=== PATIENT | female | born 1955 | race Caucasian/White ===

== ENCOUNTER 2019-07-11 12:50 | Inpatient (IN) ==
[2019-07-11 13:51] LABS: Bilirubin,Urine Negative (Negative); Blood,Urine Negative (Negative); Clarity,Urine Clear (Clear); Color,Urine Yellow (Yellow); Glucose,Urine (UA) Normal (Normal); Ketones,Urine Negative (Negative); Leukocyte Esterase,Urine Trace (Negative); Nitrite,Urine Negative (Negative); Protein,Urine Negative (Neg-Trace); Specific Gravity,Urine 1.011 (1.010-1.025); Urobilinogen,Urine Normal (Normal)
[2019-07-11 13:59] LABS: INR 1.1
[2019-07-11 14:01] LABS: Activated Partial Thrombo Time 30.5 Seconds (26.0-36.0)
[2019-07-11 14:03] LABS: Basophils % 0.2 %; Eosinophils % 0.1 %; Hematocrit 36.3 % (35.3-44.9); Hemoglobin 11.7 g/dL (11.5-15.4); Immature Granulocytes % 0.5 % (0-4); Lymphocytes # 1.1 K/mcL (0.6-4.6); Lymphocytes % 8.1 %; Mean Corpuscular HGB Conc 32.2 g/dL (31.6-35.5); Mean Corpuscular Hemoglobin 29.8 pg (28.0-33.3); Mean Corpuscular Volume 92.6 fL (83.0-100.0); Mean Platelet Volume 10.2 fL (9.4-12.4); Monocytes # 0.7 K/mcL (0.0-1.3); Neutrophils # 11.6 K/mcL (1.6-8.9); Platelet Count 282 K/mcL (140-400); Red Blood Count 3.92 M/mcL (3.82-4.97); Red Cell Distribution Width 14.5 % (11.5-14.5); Segmented Neutrophils % 86.1 %; White Blood Count 13.5 K/mcL (4.3-11.1)
[2019-07-11 14:15] LABS: Alanine Aminotransferase 20 Units/L (7-52); Albumin 4.1 g/dL (3.5-5.7); Albumin/Globulin Ratio 1.2 (1.1-2.2); Alkaline Phosphatase 95 Units/L (34-104); Aspartate Amino Transferase 33 Units/L (13-39); BUN/Creatinine Ratio 19 (6-26); Bilirubin,Direct 0.2 mg/dL (0.0-0.2); Bilirubin,Indirect 0.2 mg/dL (0.0-1.0); Bilirubin,Total 0.4 mg/dL (0.3-1.0); Blood Urea Nitrogen 17 mg/dL (8-23); Calcium 9.1 mg/dL (8.6-10.3); Carbon Dioxide 29 mEq/L (23-29); Chloride 101 mEq/L (98-107); Globulin 3.5 g/dL (2.4-3.5); Glucose 136 mg/dL (70-105); Magnesium 2.1 mg/dL (1.6-2.6); Osmolality,Calculated 292 (280-300); Phosphorous 2.9 mg/dL (2.7-4.5); Potassium 3.4 mEq/L (3.5-5.1); Sodium 139 mEq/L (136-145); Total Protein 7.6 g/dL (6.4-8.9); Troponin I < 0.03 ng/mL (< 0.04); eGFR For African Americans > 60 (> 60); eGFR For Non-African Americans > 60 (> 60)
[2019-07-11 16:00] LABS: ABG Base Excess 6 mEq/L (-2 to 3); ABG HCO3 31 mEq/L (21-27); ABG Oxygen Saturation 96 % (95-98); ABG PCO2 45 mmHg (35-45); ABG PH 7.44 pH Units (7.32-7.45); ABG PO2 77 mmHg (85-104); ABG TCO2 32 mEq/L (20-26)
[2019-07-11] MEDS ORDERED: levoFLOXacin 750 MG/150 ML 750 MG/150 ML BAG IVPB ONE (16:02)
[2019-07-11] MEDS ORDERED: Naloxone 0.4 MG/ML INJ IVP PRN (17:07)
[2019-07-11] MEDS ORDERED: Dextrose Gel 15 GM/37.5 ML TUBE PO PRN ×2 (17:48)
[2019-07-11] MEDS ORDERED: *HR* Dextrose 50 % in Water (Syg) 50 ML SYRINGE IVP PRN (17:48)
[2019-07-11] MEDS ORDERED: D5% in Water 1,000 ML IVC PRN (17:48)
[2019-07-11] MEDS ORDERED: lisinopriL 10 MG TABLET PO PRN (17:51)
[2019-07-11 18:37] LABS: Thyroid Stimulating Hormone 0.695 mcIU/mL (0.340-5.600)
[2019-07-11] MEDS: Furosemide 40 MG TABLET PO SCH (19:29)
[2019-07-11 19:37] LABS: Estimated Average Glucose 140 mg/dl
[2019-07-11] MEDS: Gabapentin 300 MG CAPSULE PO SCH (21:42)
[2019-07-11] MEDS: Insulin LISPRO 300 UNITS/3 ML VIAL SQ SCH (22:00)
[2019-07-12] MEDS ORDERED: hydrOXYzine pamoate 25 MG CAPSULE PO STA (02:02)
[2019-07-12] MEDS: Benzonatate 100 MG CAPSULE PO PRN ×2 (02:35→20:27)
[2019-07-12 05:20] LABS: Basophils % 0.3 %; Eosinophils % 0.3 %; Hematocrit 35.6 % (35.3-44.9); Hemoglobin 11.2 g/dL (11.5-15.4); Immature Granulocytes % 0.5 % (0-4); Lymphocytes # 2.8 K/mcL (0.6-4.6); Mean Corpuscular HGB Conc 31.5 g/dL (31.6-35.5); Mean Corpuscular Hemoglobin 29.1 pg (28.0-33.3); Mean Corpuscular Volume 92.5 fL (83.0-100.0); Mean Platelet Volume 9.9 fL (9.4-12.4); Monocytes # 1.4 K/mcL (0.0-1.3); Monocytes % 9.3 %; Neutrophils # 10.4 K/mcL (1.6-8.9); Platelet Count 305 K/mcL (140-400); Red Blood Count 3.85 M/mcL (3.82-4.97); Red Cell Distribution Width 14.5 % (11.5-14.5); Segmented Neutrophils % 70.6 %; White Blood Count 14.7 K/mcL (4.3-11.1)
[2019-07-12] MEDS: *HR* Enoxaparin 40 MG/0.4 ML SYRINGE SQ SCH (06:22)
[2019-07-12 06:54] LABS: BUN/Creatinine Ratio 20 (6-26); Blood Urea Nitrogen 17 mg/dL (8-23); Calcium 9.1 mg/dL (8.6-10.3); Carbon Dioxide 27 mEq/L (23-29); Chloride 102 mEq/L (98-107); Glucose 99 mg/dL (70-105); Osmolality,Calculated 288 (280-300); Potassium 3.9 mEq/L (3.5-5.1); Sodium 138 mEq/L (136-145); eGFR For African Americans > 60 (> 60); eGFR For Non-African Americans > 60 (> 60)
[2019-07-12] MEDS: Famotidine 20 MG TABLET PO SCH (07:56)
[2019-07-12] MEDS: Aspirin Enteric Coated 81 MG Tablet PO SCH (07:56)
[2019-07-12] MEDS: Furosemide 40 MG TABLET PO SCH ×2 (07:56→17:44)
[2019-07-12] MEDS: Gabapentin 300 MG CAPSULE PO SCH ×3 (07:56→19:55)
[2019-07-12] MEDS: Folic Acid 1 MG TABLET PO SCH (07:56)
[2019-07-12] MEDS: levoFLOXacin 750 MG/150 ML 750 MG/150 ML BAG IVPB SCH (07:56)
[2019-07-12] MEDS: Insulin LISPRO 300 UNITS/3 ML VIAL SQ SCH ×4 (08:14→20:35)
[2019-07-12] MEDS: Baclofen 10 MG TABLET PO PRN (09:40)
[2019-07-12] MEDS: clonazePAM 0.5 MG TABLET PO SCH ×2 (11:28→19:54)
[2019-07-12] MEDS ORDERED: hydrOXYzine pamoate 25 MG CAPSULE PO SCH (13:00)
[2019-07-12] MEDS: methylPREDNISolone 125 MG/2 ML VIAL IVP SCH (14:39)
[2019-07-12] MEDS: SUMAtriptan succinate 50 MG TABLET PO PRN (14:46)
[2019-07-12] MEDS: Tiotropium 18 MCG inhalation IH SCH (18:24)
[2019-07-13] MEDS: methylPREDNISolone 125 MG/2 ML VIAL IVP SCH ×4 (00:11→23:36)
[2019-07-13] MEDS ORDERED: Ipratropium 1 PUFF INHALER IH PRN (02:20)
[2019-07-13 02:36] LABS: ABG Base Excess 5 mEq/L (-2 to 3); ABG HCO3 30 mEq/L (21-27); ABG Oxygen Saturation 88 % (95-98); ABG PCO2 46 mmHg (35-45); ABG PH 7.43 pH Units (7.32-7.45); ABG PO2 54 mmHg (85-104); ABG TCO2 31 mEq/L (20-26)
[2019-07-13 06:00] LABS: Basophils % 0.2 %; Hematocrit 37.4 % (35.3-44.9); Hemoglobin 11.6 g/dL (11.5-15.4); Immature Granulocytes % 0.4 % (0-4); Lymphocytes # 1.2 K/mcL (0.6-4.6); Lymphocytes % 11.2 %; Mean Corpuscular Hemoglobin 28.6 pg (28.0-33.3); Mean Corpuscular Volume 92.3 fL (83.0-100.0); Mean Platelet Volume 9.6 fL (9.4-12.4); Monocytes # 0.4 K/mcL (0.0-1.3); Monocytes % 3.2 %; Neutrophils # 9.4 K/mcL (1.6-8.9); Platelet Count 315 K/mcL (140-400); Red Blood Count 4.05 M/mcL (3.82-4.97); Red Cell Distribution Width 14.1 % (11.5-14.5)
[2019-07-13] MEDS: *HR* Enoxaparin 40 MG/0.4 ML SYRINGE SQ SCH (06:18)
[2019-07-13 06:24] LABS: BUN/Creatinine Ratio 23 (6-26); Blood Urea Nitrogen 18 mg/dL (8-23); Calcium 9.2 mg/dL (8.6-10.3); Carbon Dioxide 29 mEq/L (23-29); Chloride 100 mEq/L (98-107); Glucose 148 mg/dL (70-105); Osmolality,Calculated 289 (280-300); Potassium 4.2 mEq/L (3.5-5.1); Sodium 137 mEq/L (136-145); eGFR For African Americans > 60 (> 60); eGFR For Non-African Americans > 60 (> 60)
[2019-07-13] MEDS: Insulin LISPRO 300 UNITS/3 ML VIAL SQ SCH ×4 (08:20→21:32)
[2019-07-13] MEDS: *HR* Promethazine 25 MG/ML VIAL IVP PRN (08:39)
[2019-07-13] MEDS: Aspirin Enteric Coated 81 MG Tablet PO SCH (08:40)
[2019-07-13] MEDS: Folic Acid 1 MG TABLET PO SCH (08:40)
[2019-07-13] MEDS: Gabapentin 300 MG CAPSULE PO SCH ×3 (08:40→20:00)
[2019-07-13] MEDS: clonazePAM 0.5 MG TABLET PO PRN ×2 (08:40→14:14)
[2019-07-13] MEDS: Famotidine 20 MG TABLET PO SCH (08:40)
[2019-07-13] MEDS: Furosemide 40 MG TABLET PO SCH (08:40)
[2019-07-13] MEDS: hydrOXYzine pamoate 25 MG CAPSULE PO SCH ×3 (08:40→23:38)
[2019-07-13] MEDS: levoFLOXacin 750 MG/150 ML 750 MG/150 ML BAG IVPB SCH (08:41)
[2019-07-13] MEDS: Tiotropium 18 MCG inhalation IH SCH (10:58)
[2019-07-13] MEDS: Furosemide 40 MG/4 ML VIAL IVP SCH (17:01)
[2019-07-13] MEDS: Ipratropium/Albuterol Neb 3 ML IH SCH (21:25)
[2019-07-14] MEDS: Ipratropium/Albuterol Neb 3 ML IH SCH ×7 (00:45→23:13)
[2019-07-14] MEDS: SUMAtriptan succinate 50 MG TABLET PO PRN ×2 (05:13→19:51)
[2019-07-14] MEDS: *HR* Promethazine 25 MG/ML VIAL IVP PRN (05:13)
[2019-07-14] MEDS: Baclofen 10 MG TABLET PO PRN ×2 (05:13→15:17)
[2019-07-14] MEDS: *HR* Enoxaparin 40 MG/0.4 ML SYRINGE SQ SCH (05:14)
[2019-07-14 05:41] LABS: Basophils % 0.1 %; Hematocrit 36.2 % (35.3-44.9); Hemoglobin 11.6 g/dL (11.5-15.4); Immature Granulocytes % 0.3 % (0-4); Lymphocytes # 1.2 K/mcL (0.6-4.6); Lymphocytes % 8.2 %; Mean Corpuscular Hemoglobin 29.6 pg (28.0-33.3); Mean Corpuscular Volume 92.3 fL (83.0-100.0); Mean Platelet Volume 9.6 fL (9.4-12.4); Monocytes # 0.7 K/mcL (0.0-1.3); Monocytes % 4.6 %; Neutrophils # 12.5 K/mcL (1.6-8.9); Platelet Count 320 K/mcL (140-400); Red Blood Count 3.92 M/mcL (3.82-4.97); Red Cell Distribution Width 14.2 % (11.5-14.5); Segmented Neutrophils % 86.8 %; White Blood Count 14.4 K/mcL (4.3-11.1)
[2019-07-14 06:07] LABS: BUN/Creatinine Ratio 30 (6-26); Blood Urea Nitrogen 26 mg/dL (8-23); Calcium 9.3 mg/dL (8.6-10.3); Carbon Dioxide 29 mEq/L (23-29); Chloride 100 mEq/L (98-107); Glucose 200 mg/dL (70-105); Lactate Dehydrogenase 378 Units/L (140-271); Osmolality,Calculated 296 (280-300); Potassium 3.8 mEq/L (3.5-5.1); Sodium 138 mEq/L (136-145); eGFR For African Americans > 60 (> 60); eGFR For Non-African Americans > 60 (> 60)
[2019-07-14 07:59] LABS: C-Reactive Protein 165 mg/L (Less than 10)
[2019-07-14] MEDS ORDERED: Isovue-370 500 ML BOTTLE IVP ONE (08:36)
[2019-07-14] MEDS: hydrOXYzine pamoate 25 MG CAPSULE PO SCH ×3 (10:02→23:32)
[2019-07-14] MEDS: Famotidine 20 MG TABLET PO SCH (10:02)
[2019-07-14] MEDS: Aspirin Enteric Coated 81 MG Tablet PO SCH (10:02)
[2019-07-14] MEDS: Gabapentin 300 MG CAPSULE PO SCH ×3 (10:02→19:49)
[2019-07-14] MEDS: Folic Acid 1 MG TABLET PO SCH (10:02)
[2019-07-14] MEDS: Furosemide 40 MG/4 ML VIAL IVP SCH ×2 (10:14→17:17)
[2019-07-14] MEDS: levoFLOXacin 750 MG/150 ML 750 MG/150 ML BAG IVPB SCH (10:15)
[2019-07-14] MEDS: Insulin LISPRO 300 UNITS/3 ML VIAL SQ SCH ×4 (10:16→21:52)
[2019-07-14] MEDS: clonazePAM 0.5 MG TABLET PO PRN (10:17)
[2019-07-14] MEDS: methylPREDNISolone 125 MG/2 ML VIAL IVP SCH ×4 (10:25→23:32)
[2019-07-14 10:44] LABS: Complement C3 172 mg/dL (87-200)
[2019-07-14] MEDS: Budesonide/Formoterol 160/4.5 1 PUFF INH IH SCH ×2 (11:09→20:14)
[2019-07-14] MEDS: Benzonatate 100 MG CAPSULE PO PRN (15:17)
[2019-07-14 23:08] LABS: ABG Base Excess 6 mEq/L (-2 to 3); ABG HCO3 31 mEq/L (21-27); ABG Oxygen Saturation 97 % (95-98); ABG PCO2 48 mmHg (35-45); ABG PH 7.42 pH Units (7.32-7.45); ABG PO2 86 mmHg (85-104); ABG TCO2 33 mEq/L (20-26)
[2019-07-15] MEDS: Ipratropium/Albuterol Neb 3 ML IH SCH ×6 (04:11→23:34)
[2019-07-15] MEDS: *HR* Enoxaparin 40 MG/0.4 ML SYRINGE SQ SCH (04:58)
[2019-07-15 05:58] LABS: Basophils % 0.1 %; Hematocrit 36.8 % (35.3-44.9); Hemoglobin 11.5 g/dL (11.5-15.4); Immature Granulocytes % 0.8 % (0-4); Lymphocytes % 7.7 %; Mean Corpuscular HGB Conc 31.3 g/dL (31.6-35.5); Mean Corpuscular Hemoglobin 28.8 pg (28.0-33.3); Mean Corpuscular Volume 92.2 fL (83.0-100.0); Mean Platelet Volume 9.8 fL (9.4-12.4); Monocytes # 0.7 K/mcL (0.0-1.3); Monocytes % 5.3 %; Neutrophils # 11.5 K/mcL (1.6-8.9); Platelet Count 380 K/mcL (140-400); Red Blood Count 3.99 M/mcL (3.82-4.97); Red Cell Distribution Width 14.2 % (11.5-14.5); Segmented Neutrophils % 86.1 %; White Blood Count 13.3 K/mcL (4.3-11.1)
[2019-07-15 06:17] LABS: BUN/Creatinine Ratio 32 (6-26); Blood Urea Nitrogen 29 mg/dL (8-23); Calcium 9.3 mg/dL (8.6-10.3); Carbon Dioxide 30 mEq/L (23-29); Chloride 100 mEq/L (98-107); Glucose 182 mg/dL (70-105); Osmolality,Calculated 304 (280-300); Potassium 3.5 mEq/L (3.5-5.1); Sodium 142 mEq/L (136-145); eGFR For African Americans > 60 (> 60); eGFR For Non-African Americans > 60 (> 60)
[2019-07-15] MEDS ORDERED: *HR* Propofol 200 MG/20 ML VIAL IVP ONE (06:30)
[2019-07-15] MEDS ORDERED: *HR* FentaNYL (PF) 100 MCG/2 ML VIAL ONE (06:30)
[2019-07-15] MEDS ORDERED: *HR* Midazolam HCl 2 MG/2 ML VIAL ONE (06:30)
[2019-07-15] MEDS ORDERED: Ondansetron 4 MG/2 ML VIAL ONE (06:41)
[2019-07-15] MEDS ORDERED: Lidocaine -MPF 4% 5 ML AMPUL ONE (06:41)
[2019-07-15] MEDS ORDERED: *HR* Succinylcholine 200 MG/10 ML VIAL IVP ONE (06:41)
[2019-07-15] MEDS ORDERED: Lidocaine -MPF 2% 2 ML VIAL ONE (06:41)
[2019-07-15] MEDS: Budesonide/Formoterol 160/4.5 1 PUFF INH IH SCH ×2 (07:14→19:59)
[2019-07-15] MEDS: Ringers Solution, Lactated 1,000 ML IVC SCH (08:28)
[2019-07-15] MEDS ORDERED: *HR* EPINEPHrine 1 MG/10 ML SYRINGE INTRATRACH PRN (08:42)
[2019-07-15] MEDS ORDERED: Albuterol 2.5 MG/3 ML NEBULIZER ONE (08:48)
[2019-07-15] MEDS ORDERED: Albuterol 2.5 MG/3 ML NEBULIZER IH ONE (08:50)
[2019-07-15 10:17] LABS: Source of Body Fluid RUL BAL
[2019-07-15] MEDS: Insulin LISPRO 300 UNITS/3 ML VIAL SQ SCH ×4 (10:38→20:17)
[2019-07-15 10:43] LABS: Appearance of Body Fluid Cloudy (Clear); Volume of Body Fluid 25 mL
[2019-07-15] MEDS: Famotidine 20 MG TABLET PO SCH (10:50)
[2019-07-15] MEDS: Aspirin Enteric Coated 81 MG Tablet PO SCH (10:50)
[2019-07-15] MEDS: Furosemide 40 MG/4 ML VIAL IVP SCH (10:50)
[2019-07-15] MEDS: Folic Acid 1 MG TABLET PO SCH (10:50)
[2019-07-15] MEDS: hydrOXYzine pamoate 25 MG CAPSULE PO SCH ×3 (10:51→23:31)
[2019-07-15] MEDS: methylPREDNISolone 125 MG/2 ML VIAL IVP SCH ×3 (10:51→23:31)
[2019-07-15] MEDS: Gabapentin 300 MG CAPSULE PO SCH ×3 (10:51→19:45)
[2019-07-15] MEDS: levoFLOXacin 750 MG/150 ML 750 MG/150 ML BAG IVPB SCH (10:52)
[2019-07-15] MEDS: Furosemide 40 MG TABLET PO SCH (17:43)
[2019-07-15] MEDS: Benzonatate 100 MG CAPSULE PO PRN (19:47)
[2019-07-15] MEDS: Baclofen 10 MG TABLET PO PRN (19:49)
[2019-07-16 02:22] LABS: Basophils % 0.2 %; Hematocrit 35.9 % (35.3-44.9); Immature Granulocytes % 0.7 % (0-4); Lymphocytes % 7.6 %; Mean Corpuscular HGB Conc 30.6 g/dL (31.6-35.5); Mean Corpuscular Hemoglobin 28.6 pg (28.0-33.3); Mean Corpuscular Volume 93.2 fL (83.0-100.0); Mean Platelet Volume 9.4 fL (9.4-12.4); Monocytes # 0.8 K/mcL (0.0-1.3); Monocytes % 6.2 %; Neutrophils # 11.3 K/mcL (1.6-8.9); Platelet Count 365 K/mcL (140-400); Red Blood Count 3.85 M/mcL (3.82-4.97); Red Cell Distribution Width 14.4 % (11.5-14.5); Segmented Neutrophils % 85.3 %; White Blood Count 13.2 K/mcL (4.3-11.1)
[2019-07-16 02:41] LABS: BUN/Creatinine Ratio 32 (6-26); Blood Urea Nitrogen 30 mg/dL (8-23); Calcium 8.8 mg/dL (8.6-10.3); Carbon Dioxide 31 mEq/L (23-29); Chloride 99 mEq/L (98-107); Glucose 216 mg/dL (70-105); Osmolality,Calculated 299 (280-300); Potassium 4.1 mEq/L (3.5-5.1); Sodium 138 mEq/L (136-145); eGFR For African Americans > 60 (> 60); eGFR For Non-African Americans > 60 (> 60)
[2019-07-16] MEDS: Ipratropium/Albuterol Neb 3 ML IH SCH ×5 (04:10→20:28)
[2019-07-16] MEDS: *HR* Enoxaparin 40 MG/0.4 ML SYRINGE SQ SCH (05:45)
[2019-07-16] MEDS: Budesonide/Formoterol 160/4.5 1 PUFF INH IH SCH ×2 (07:48→20:34)
[2019-07-16] MEDS: Insulin LISPRO 300 UNITS/3 ML VIAL SQ SCH ×3 (07:49→17:03)
[2019-07-16] MEDS: Acetylcysteine 10% 2 ML INHSOL IH SCH ×4 (07:49→20:28)
[2019-07-16] MEDS: Aspirin Enteric Coated 81 MG Tablet PO SCH (07:50)
[2019-07-16] MEDS: Gabapentin 300 MG CAPSULE PO SCH ×3 (07:50→20:19)
[2019-07-16] MEDS: hydrOXYzine pamoate 25 MG CAPSULE PO SCH ×2 (07:51→15:42)
[2019-07-16] MEDS: Folic Acid 1 MG TABLET PO SCH (07:51)
[2019-07-16] MEDS: Furosemide 40 MG TABLET PO SCH ×2 (07:51→17:46)
[2019-07-16] MEDS: Famotidine 20 MG TABLET PO SCH (07:51)
[2019-07-16] MEDS: methylPREDNISolone 125 MG/2 ML VIAL IVP SCH (07:51)
[2019-07-16] MEDS: levoFLOXacin 750 MG TABLET PO SCH (07:51)
[2019-07-16] MEDS: Ringers Solution, Lactated 1,000 ML IVC SCH (07:52)
[2019-07-16] MEDS: *HR* Promethazine 25 MG/ML VIAL IVP PRN (15:46)
[2019-07-16] MEDS: Baclofen 10 MG TABLET PO PRN (15:46)
[2019-07-16] MEDS: MethylPREDNISolone 40 MG/ML VIAL IVP SCH (17:46)
[2019-07-16] MEDS: Benzonatate 100 MG CAPSULE PO PRN (20:23)
[2019-07-17] MEDS: Acetylcysteine 10% 2 ML INHSOL IH SCH ×4 (00:13→11:48)
[2019-07-17] MEDS: Ipratropium/Albuterol Neb 3 ML IH SCH ×7 (00:14→23:30)
[2019-07-17] MEDS: Insulin LISPRO 300 UNITS/3 ML VIAL SQ SCH ×4 (00:15→17:27)
[2019-07-17] MEDS: hydrOXYzine pamoate 25 MG CAPSULE PO SCH ×2 (00:23→08:50)
[2019-07-17] MEDS: Ringers Solution, Lactated 1,000 ML IVC SCH (00:30)
[2019-07-17 02:15] LABS: Basophils % 0.2 %; Hemoglobin 11.1 g/dL (11.5-15.4); Immature Granulocytes % 1.5 % (0-4); Lymphocytes % 13.9 %; Mean Corpuscular HGB Conc 31.7 g/dL (31.6-35.5); Mean Corpuscular Hemoglobin 29.1 pg (28.0-33.3); Mean Corpuscular Volume 91.9 fL (83.0-100.0); Mean Platelet Volume 9.4 fL (9.4-12.4); Monocytes # 1.1 K/mcL (0.0-1.3); Monocytes % 7.4 %; Platelet Count 349 K/mcL (140-400); Red Blood Count 3.81 M/mcL (3.82-4.97); Red Cell Distribution Width 14.3 % (11.5-14.5); White Blood Count 14.3 K/mcL (4.3-11.1)
[2019-07-17 02:26] LABS: BUN/Creatinine Ratio 37 (6-26); Blood Urea Nitrogen 34 mg/dL (8-23); Calcium 8.6 mg/dL (8.6-10.3); Carbon Dioxide 30 mEq/L (23-29); Chloride 99 mEq/L (98-107); Glucose 190 mg/dL (70-105); Osmolality,Calculated 299 (280-300); Sodium 138 mEq/L (136-145); eGFR For African Americans > 60 (> 60); eGFR For Non-African Americans > 60 (> 60)
[2019-07-17] MEDS: MethylPREDNISolone 40 MG/ML VIAL IVP SCH (06:16)
[2019-07-17] MEDS: *HR* Enoxaparin 40 MG/0.4 ML SYRINGE SQ SCH (06:16)
[2019-07-17 07:03] LABS: ANA IgG by ELISA NONE DETECTED (None Detected)
[2019-07-17] MEDS: Aspirin Enteric Coated 81 MG Tablet PO SCH (08:50)
[2019-07-17] MEDS: levoFLOXacin 750 MG TABLET PO SCH (08:50)
[2019-07-17] MEDS: Gabapentin 300 MG CAPSULE PO SCH ×3 (08:50→20:27)
[2019-07-17] MEDS: Famotidine 20 MG TABLET PO SCH (08:50)
[2019-07-17] MEDS: Furosemide 40 MG TABLET PO SCH ×2 (08:50→17:27)
[2019-07-17] MEDS: Folic Acid 1 MG TABLET PO SCH (08:50)
[2019-07-17 11:39] LABS: Serine Protease-3 Antibody 3 AU/mL (0-19)
[2019-07-17] MEDS: Budesonide/Formoterol 160/4.5 1 PUFF INH IH SCH ×2 (11:45→20:48)
[2019-07-17] MEDS ORDERED: Budesonide/Formoterol 80/4.5 1 PUFF INH IH SCH (13:01)
[2019-07-17] MEDS: predniSONE 20 MG TABLET PO SCH (15:04)
[2019-07-18] MEDS: Insulin LISPRO 300 UNITS/3 ML VIAL SQ SCH ×3 (02:24→11:47)
[2019-07-18] MEDS: Ipratropium/Albuterol Neb 3 ML IH SCH ×3 (03:51→11:41)
[2019-07-18] MEDS: *HR* Enoxaparin 40 MG/0.4 ML SYRINGE SQ SCH (06:01)
[2019-07-18] MEDS: Budesonide/Formoterol 160/4.5 1 PUFF INH IH SCH (07:47)
[2019-07-18] MEDS: levoFLOXacin 750 MG TABLET PO SCH (07:49)
[2019-07-18] MEDS: Gabapentin 300 MG CAPSULE PO SCH (07:49)
[2019-07-18] MEDS: Aspirin Enteric Coated 81 MG Tablet PO SCH (07:49)
[2019-07-18] MEDS: Famotidine 20 MG TABLET PO SCH (07:50)
[2019-07-18] MEDS: Furosemide 40 MG TABLET PO SCH (07:50)
[2019-07-18] MEDS: Folic Acid 1 MG TABLET PO SCH (07:50)
[2019-07-18] MEDS: predniSONE 20 MG TABLET PO SCH (07:50)
[2019-07-18] MEDS ORDERED: hydrOXYzine pamoate 25 MG CAPSULE PO SCH (09:00)
[2019-07-18] MEDS ORDERED: predniSONE 20 MG TABLET PO SCH (09:00)
[2019-07-18 11:37] VITALS: BP 128/82
== END 2019-07-18 13:05 | disposition home or self-care (01) | DRG 193 ==
LOC: 2NENU 12:50 → EMEROOARM 12:50 → 2NENU 18:08 → SUATTDRO 07-12 15:19 → 3NENU 07-13 22:58
PROVIDERS: ADMIT Internal Medicine; ATTEND Student in an Organized Health Care Education/Training Program

== ENCOUNTER 2020-10-13 09:54 | Observation (INO) ==
[2020-10-13 10:43] LABS: Basophils # 0.1 K/mcL (0.0-0.2); Basophils % 1.4 %; Eosinophils # 0.3 K/mcL (0.0-0.6); Hematocrit 41.2 % (35.3-44.9); Hemoglobin 12.7 g/dL (11.5-15.4); Immature Granulocytes % 0.2 % (0-4); Lymphocytes # 3.5 K/mcL (0.6-4.6); Lymphocytes % 41.6 %; Mean Corpuscular HGB Conc 30.8 g/dL (31.6-35.5); Mean Corpuscular Hemoglobin 26.5 pg (28.0-33.3); Mean Platelet Volume 9.3 fL (9.4-12.4); Monocytes # 0.8 K/mcL (0.0-1.3); Monocytes % 8.9 %; Neutrophils # 3.8 K/mcL (1.6-8.9); Platelet Count 361 K/mcL (140-400); Red Blood Count 4.79 M/mcL (3.82-4.97); Red Cell Distribution Width 14.6 % (11.5-14.5); Segmented Neutrophils % 44.9 %; White Blood Count 8.4 K/mcL (4.3-11.1)
[2020-10-13 10:51] LABS: INR 1.1; Prothrombin Time 12.7 Seconds (9.4-12.1)
[2020-10-13 10:53] LABS: Activated Partial Thrombo Time 31.6 Seconds (26.0-36.0)
[2020-10-13 11:06] LABS: Alanine Aminotransferase 22 Units/L (7-52); Albumin 4.3 g/dL (3.5-5.7); Albumin/Globulin Ratio 1.2 (1.1-2.2); Alkaline Phosphatase 124 Units/L (34-104); Aspartate Amino Transferase 34 Units/L (13-39); BUN/Creatinine Ratio 20 (6-26); Bilirubin,Indirect 0.5 mg/dL (0.0-1.0); Bilirubin,Total 0.5 mg/dL (0.3-1.0); Blood Urea Nitrogen 18 mg/dL (8-23); Calcium 9.2 mg/dL (8.6-10.3); Carbon Dioxide 30 mEq/L (23-29); Chloride 102 mEq/L (98-107); Ethanol < 10 mg/dL (Less than 10); Globulin 3.5 g/dL (2.4-3.5); Glucose 121 mg/dL (70-105); Osmolality,Calculated 293 (280-300); Potassium 3.8 mEq/L (3.5-5.1); Sodium 140 mEq/L (136-145); Total Protein 7.8 g/dL (6.4-8.9); Troponin I < 0.03 ng/mL (< 0.04); eGFR For African Americans > 60 (> 60); eGFR For Non-African Americans > 60 (> 60)
[2020-10-13 11:19] LABS: Thyroid Stimulating Hormone 1.994 mcIU/mL (0.340-5.600)
[2020-10-13 12:07] LABS: Bilirubin,Urine Negative (Negative); Blood,Urine Negative (Negative); Clarity,Urine Clear (Clear); Color,Urine Yellow (Yellow); Glucose,Urine (UA) Normal (Normal); Ketones,Urine Negative (Negative); Leukocyte Esterase,Urine Negative (Negative); Nitrite,Urine Negative (Negative); Protein,Urine Trace mg/dL (Neg-Trace); Specific Gravity,Urine 1.026 (1.010-1.025)
[2020-10-13 12:51] LABS: Adenovirus Not Detected (Not Detect); Coronavirus 229E Not Detected (Not Detect); Coronavirus HKU1 Not Detected (Not Detect); Coronavirus NL63 Not Detected (Not Detect); Coronavirus OC43 Not Detected (Not Detect); Human Metapneumovirus Not Detected (Not Detect); Human Rhinovirus/Enterovirus Not Detected (Not Detect); Influenza A Subtype 2009 H1 Not Detected (Not Detect); SARS-CoV-2 Not Detected (Not Detect)
[2020-10-13 12:52] LABS: Bordetella Pertussis Not Detected (Not Detect); Chlamydophila pneumoniae Not Detected (Not Detect); Influenza B Not Detected (Not Detect); Mycoplasma pneumoniae Not Detected (Not Detect); Parainfluenza Virus 1 Not Detected (Not Detect); Parainfluenza Virus 2 Not Detected (Not Detect); Parainfluenza Virus 3 Not Detected (Not Detect); Parainfluenza Virus 4 Not Detected (Not Detect); Respiratory Syncytial Virus Not Detected (Not Detect)
[2020-10-13 13:11] LABS: Amphetamine Screen,Urine Negative ng/mL (Cutoff=1000); Barbiturate Screen,Urine Negative ng/mL (Cutoff=200); Benzodiazepines Screen,Urine Negative ng/mL (Cutoff=200); Cannabinoid Screen,Urine Negative ng/mL (Cutoff = 50); Cocaine Screen,Urine Negative ng/mL (Cutoff= 300); Opiate Screen,Urine Negative ng/mL (Cutoff=300); Phencyclidine Screen,Urine Negative ng/mL (Cutoff=25)
[2020-10-13] MEDS ORDERED: Ondansetron 4 MG/2 ML VIAL IVP PRN (14:12)
[2020-10-13] MEDS ORDERED: Naloxone 0.4 MG/ML INJ IVP PRN (14:12)
[2020-10-13] MEDS ORDERED: Perflutren Lipid Microsphere 1.3 ML in 0.9 % Sodium Chloride 8.7 ML IVP PRN (14:19)
[2020-10-13] MEDS ORDERED: D5% in Water 1,000 ML IVC PRN ×2 (15:01→18:55)
[2020-10-13] MEDS ORDERED: Dextrose Gel 15 GM/37.5 ML TUBE PO PRN ×4 (15:01→18:55)
[2020-10-13] MEDS ORDERED: *HR* Dextrose 50 % in Water (Vial) 50 ML VIAL IVP PRN ×2 (15:01→18:55)
[2020-10-13] MEDS ORDERED: Fluticasone Propionate Nasal 50 MCG/SPRAY BOTTLE NS PRN (15:02)
[2020-10-13] MEDS: Ipratropium/Albuterol Neb 3 ML IH SCH ×2 (15:32→23:14)
[2020-10-13] MEDS ORDERED: Isovue-370 500 ML BOTTLE IVP ONE (17:01)
[2020-10-13 17:32] LABS: Magnesium 2.2 mg/dL (1.6-2.6); Troponin I < 0.03 ng/mL (< 0.04)
[2020-10-13 17:45] LABS: Estimated Average Glucose 140 mg/dl; Hemoglobin A1C 6.5 %
[2020-10-13 17:47] LABS: Folate > 22.3 ng/mL (3.0-16.0); Vitamin B12 480 pg/mL (250-1100)
[2020-10-13] MEDS ORDERED: Insulin LISPRO 300 UNITS/3 ML VIAL SUBQ SCH (18:00)
[2020-10-13] MEDS: *HR* Heparin 5,000 UNIT/ML VIAL SQ SCH (18:02)
[2020-10-13] MEDS: Thiamine (B-1) 100 MG in 0.9 % Sodium Chloride 50 ML IVPB SCH (18:03)
[2020-10-13 18:18] LABS: ABG Base Excess 2 mEq/L (-2 to 3); ABG HCO3 27 mEq/L (21-27); ABG Oxygen Saturation 91 % (95-98); ABG PCO2 42 mmHg (35-45); ABG PH 7.41 pH Units (7.32-7.45); ABG PO2 62 mmHg (85-104); ABG TCO2 28 mEq/L (20-26)
[2020-10-13 19:15] LABS: Procalcitonin 0.05 ng/mL (0.00-0.15)
[2020-10-13] MEDS: Insulin LISPRO 300 UNITS/3 ML VIAL SUBQ SCH (21:02)
[2020-10-14 02:34] LABS: Eosinophils % 1.7 %; Immature Granulocytes % 0.2 % (0-4); Mean Platelet Volume 10.9 fL (9.4-12.4); Red Cell Distribution Width 14.6 % (11.5-14.5)
[2020-10-14 02:36] LABS: Basophils # 0.1 K/mcL (0.0-0.2); Basophils % 1.5 %; Eosinophils # 0.1 K/mcL (0.0-0.6); Hematocrit 40.8 % (35.3-44.9); Hemoglobin 12.4 g/dL (11.5-15.4); Immature Platelets 9.3 % (1.1-6.1); Lymphocytes # 3.6 K/mcL (0.6-4.6); Lymphocytes % 43.4 %; Mean Corpuscular HGB Conc 30.4 g/dL (31.6-35.5); Mean Corpuscular Hemoglobin 26.2 pg (28.0-33.3); Mean Corpuscular Volume 86.3 fL (83.0-100.0); Monocytes # 0.6 K/mcL (0.0-1.3); Monocytes % 7.5 %; Neutrophils # 3.8 K/mcL (1.6-8.9); Platelet Count 213 K/mcL (140-400); Red Blood Count 4.73 M/mcL (3.82-4.97); Segmented Neutrophils % 45.7 %; White Blood Count 8.3 K/mcL (4.3-11.1)
[2020-10-14 02:54] LABS: Chol/HDL Ratio 3.7 (0-4.9)
[2020-10-14] MEDS: Ipratropium/Albuterol Neb 3 ML IH SCH ×4 (04:05→22:54)
[2020-10-14] MEDS: *HR* Heparin 5,000 UNIT/ML VIAL SQ SCH ×2 (05:31→15:45)
[2020-10-14] MEDS ORDERED: Acetaminophen 325 MG TABLET PO PRN (06:00)
[2020-10-14] MEDS: Insulin LISPRO 300 UNITS/3 ML VIAL SUBQ SCH ×4 (07:42→20:17)
[2020-10-14] MEDS: Thiamine (B-1) 100 MG in 0.9 % Sodium Chloride 50 ML IVPB SCH (08:36)
[2020-10-14] MEDS: levETIRAcetam 250 MG TABLET PO SCH (16:56)
[2020-10-14 23:19] VITALS: PULSE 83
[2020-10-15 04:07] VITALS: BP 114/74; TEMP 98; O2SAT 98
[2020-10-15] MEDS: Ipratropium/Albuterol Neb 3 ML IH SCH (04:33)
[2020-10-15 05:33] LABS: Hematocrit 41.1 % (35.3-44.9); Hemoglobin 12.3 g/dL (11.5-15.4); Mean Corpuscular HGB Conc 29.9 g/dL (31.6-35.5); Mean Corpuscular Hemoglobin 26.3 pg (28.0-33.3); Mean Corpuscular Volume 87.8 fL (83.0-100.0); Mean Platelet Volume 11.1 fL (9.4-12.4); Platelet Count 164 K/mcL (140-400); Red Blood Count 4.68 M/mcL (3.82-4.97); Red Cell Distribution Width 14.8 % (11.5-14.5); White Blood Count 8.8 K/mcL (4.3-11.1)
[2020-10-15] MEDS: levETIRAcetam 250 MG TABLET PO SCH (05:38)
[2020-10-15] MEDS: *HR* Heparin 5,000 UNIT/ML VIAL SQ SCH (05:39)
[2020-10-15 05:51] LABS: Alanine Aminotransferase 26 Units/L (7-52); Albumin 4.3 g/dL (3.5-5.7); Albumin/Globulin Ratio 1.3 (1.1-2.2); Alkaline Phosphatase 104 Units/L (34-104); Aspartate Amino Transferase 52 Units/L (13-39); BUN/Creatinine Ratio 17 (6-26); Bilirubin,Total 0.9 mg/dL (0.3-1.0); Blood Urea Nitrogen 12 mg/dL (8-23); Calcium 9.5 mg/dL (8.6-10.3); Carbon Dioxide 23 mEq/L (23-29); Chloride 103 mEq/L (98-107); Globulin 3.4 g/dL (2.4-3.5); Glucose 100 mg/dL (70-105); Osmolality,Calculated 284 (280-300); Potassium 3.5 mEq/L (3.5-5.1); Sodium 137 mEq/L (136-145); Total Protein 7.7 g/dL (6.4-8.9); eGFR For African Americans > 60 (> 60); eGFR For Non-African Americans > 60 (> 60)
[2020-10-15] MEDS: Thiamine (B-1) 100 MG in 0.9 % Sodium Chloride 50 ML IVPB SCH (08:12)
[2020-10-15] MEDS: Insulin LISPRO 300 UNITS/3 ML VIAL SUBQ SCH ×2 (08:39→09:07)
[2020-10-16 18:26] LABS: APTT (LE Anticoag) 37 sec (32-48); Diluted Russell Viper Venom 29 sec (33-44); PT (LE-Anticoag) 12.9 sec (12.0-15.5)
== END 2020-10-15 10:43 | disposition home or self-care (01) ==
LOC: 3BNU 09:54 → EMEROOARM 09:54 → SUATTDRO 13:27 → 3BNU 14:16
PROVIDERS: ADMIT Pharmacist; ATTEND Registered Nurse

== ENCOUNTER 2020-11-29 21:06 | Inpatient (IN) ==
[2020-11-29] MEDS ORDERED: Haloperidol Lactate 5 MG/ML VIAL IM ONE (21:52)
[2020-11-29 22:04] LABS: Basophils # 0.1 K/mcL (0.0-0.2); Basophils % 0.8 %; Eosinophils # 0.3 K/mcL (0.0-0.6); Eosinophils % 4.4 %; Hematocrit 29.6 % (35.3-44.9); Hemoglobin 9.4 g/dL (11.5-15.4); Immature Granulocytes % 0.7 % (0-4); Lymphocytes # 3.3 K/mcL (0.6-4.6); Lymphocytes % 44.1 %; Mean Corpuscular HGB Conc 31.8 g/dL (31.6-35.5); Mean Corpuscular Hemoglobin 26.9 pg (28.0-33.3); Mean Corpuscular Volume 84.8 fL (83.0-100.0); Mean Platelet Volume 9.5 fL (9.4-12.4); Monocytes # 1.1 K/mcL (0.0-1.3); Monocytes % 14.3 %; Neutrophils # 2.7 K/mcL (1.6-8.9); Platelet Count 397 K/mcL (140-400); Red Blood Count 3.49 M/mcL (3.82-4.97); Red Cell Distribution Width 16.9 % (11.5-14.5); Segmented Neutrophils % 35.7 %; White Blood Count 7.5 K/mcL (4.3-11.1)
[2020-11-29 22:37] LABS: Alanine Aminotransferase 32 Units/L (7-52); Albumin 3.6 g/dL (3.5-5.7); Albumin/Globulin Ratio 1.2 (1.1-2.2); Alkaline Phosphatase 105 Units/L (34-104); Aspartate Amino Transferase 34 Units/L (13-39); BUN/Creatinine Ratio 15 (6-26); Bilirubin,Direct 0.1 mg/dL (0.0-0.2); Bilirubin,Indirect 0.5 mg/dL (0.0-1.0); Bilirubin,Total 0.6 mg/dL (0.3-1.0); Blood Urea Nitrogen 14 mg/dL (8-23); Calcium 9.1 mg/dL (8.6-10.3); Carbon Dioxide 31 mEq/L (23-29); Chloride 99 mEq/L (98-107); Ethanol < 10 mg/dL (Less than 10); Globulin 2.9 g/dL (2.4-3.5); Glucose 123 mg/dL (70-105); Osmolality,Calculated 292 (280-300); Potassium 2.9 mEq/L (3.5-5.1); Sodium 140 mEq/L (136-145); Total Protein 6.5 g/dL (6.4-8.9); Troponin I < 0.03 ng/mL (< 0.04); eGFR For African Americans > 60 (> 60); eGFR For Non-African Americans 60 (> 60)
[2020-11-30] MEDS ORDERED: Potassium Effervescent 25 MEQ TABLET.EFF PO ONE (00:36)
[2020-11-30 01:26] LABS: Amphetamine Screen,Urine Negative ng/mL (Cutoff=1000); Barbiturate Screen,Urine Negative ng/mL (Cutoff=200); Benzodiazepines Screen,Urine Negative ng/mL (Cutoff=200); Cannabinoid Screen,Urine Negative ng/mL (Cutoff = 50); Cocaine Screen,Urine Negative ng/mL (Cutoff= 300); Opiate Screen,Urine Positive ng/mL (Cutoff=300); Phencyclidine Screen,Urine Negative ng/mL (Cutoff=25)
[2020-11-30] MEDS ORDERED: Haloperidol Lactate 5 MG/ML VIAL IM ONE ×3 (01:39→09:20)
[2020-11-30] MEDS ORDERED: *HR* LORazepam 2 MG/ML VIAL IVP ONE (10:25)
[2020-11-30] MEDS ORDERED: *HR* LORazepam 2 MG/ML VIAL IM ONE ×2 (11:02→11:10)
[2020-11-30 11:42] LABS: Bilirubin,Urine Negative (Negative); Blood,Urine Negative (Negative); Clarity,Urine Clear (Clear); Color,Urine Yellow (Yellow); Glucose,Urine (UA) Normal (Normal); Hyaline Casts,Urine Many per lpf (None Seen); Ketones,Urine 10 mg/dL (Negative); Leukocyte Esterase,Urine Small (Negative); Mucus,Urine Few per lpf (None-Few); Nitrite,Urine Negative (Negative); Protein,Urine Trace mg/dL (Neg-Trace); RBC,Urine 0-3 per hpf (0-3); Renal Epithelial Cells,Urine Few per hpf (None-Few); Specific Gravity,Urine 1.024 (1.010-1.025); Squamous Epithelial Cell,Urine Few per hpf (None-Few); Transitional Epi Cells,Urine Few per hpf (None-Few); WBC,Urine 0-3 per hpf (0-3)
[2020-11-30] MEDS ORDERED: Mag Hydrox/Al Hydrox/Simeth 30 ML UDC PO PRN (13:42)
[2020-11-30] MEDS ORDERED: MOM Conc 10 ML UD.LIQ PO PRN (13:42)
[2020-11-30] MEDS ORDERED: Ondansetron ODT 4 MG TAB.RAPDIS SL PRN (13:42)
[2020-11-30] MEDS ORDERED: Naloxone 0.4 MG/ML INJ IVP PRN (13:42)
[2020-11-30] MEDS ORDERED: *HR* Dextrose 50 % in Water (Vial) 50 ML VIAL IVP PRN (14:49)
[2020-11-30] MEDS ORDERED: D5% in Water 1,000 ML IVC PRN (14:49)
[2020-11-30] MEDS ORDERED: Dextrose Gel 15 GM/37.5 ML TUBE PO PRN ×2 (14:49)
[2020-11-30] MEDS: 0.9 % Sodium Chloride 1,000 ML IVC SCH (15:44)
[2020-11-30] MEDS: cefTRIAXone 1,000 MG in 0.9 % Sodium Chloride Mini Bag 100 ML IVPB SCH (15:45)
[2020-11-30] MEDS: Insulin LISPRO 300 UNITS/3 ML VIAL SUBQ SCH ×2 (15:46→21:59)
[2020-11-30 16:25] LABS: BUN/Creatinine Ratio 15 (6-26); Blood Urea Nitrogen 11 mg/dL (8-23); Calcium 9.1 mg/dL (8.6-10.3); Carbon Dioxide 27 mEq/L (23-29); Chloride 103 mEq/L (98-107); Glucose 84 mg/dL (70-105); Osmolality,Calculated 291 (280-300); Potassium 3.5 mEq/L (3.5-5.1); Sodium 141 mEq/L (136-145); eGFR For African Americans > 60 (> 60); eGFR For Non-African Americans > 60 (> 60)
[2020-11-30 16:38] LABS: ABG Base Excess 6 mEq/L (-2 to 3); ABG HCO3 29 mEq/L (21-27); ABG Oxygen Saturation 94 % (95-98); ABG PCO2 35 mmHg (35-45); ABG PH 7.52 pH Units (7.32-7.45); ABG PO2 62 mmHg (85-104); ABG TCO2 30 mEq/L (20-26)
[2020-11-30] MEDS ORDERED: Ziprasidone 10 MG, Closed System Device IM Kit 1 EACH in Water for inj. (sterile) 0.5 ML IM ONE (17:06)
[2020-11-30] MEDS ORDERED: Ziprasidone 20 MG/VIAL VIAL IM ONE (19:54)
[2020-11-30] MEDS ORDERED: Water for inj. (sterile) 10 ML ONE (19:54)
[2020-12-01] MEDS ORDERED: *HR* LORazepam 2 MG/ML VIAL IVP ONE ×2 (00:25→07:27)
[2020-12-01 01:30] LABS: Hematocrit 31.4 % (35.3-44.9); Mean Corpuscular HGB Conc 31.8 g/dL (31.6-35.5); Mean Corpuscular Hemoglobin 27.2 pg (28.0-33.3); Mean Corpuscular Volume 85.6 fL (83.0-100.0); Mean Platelet Volume 9.7 fL (9.4-12.4); Platelet Count 467 K/mcL (140-400); Red Blood Count 3.67 M/mcL (3.82-4.97); White Blood Count 10.2 K/mcL (4.3-11.1)
[2020-12-01 01:49] LABS: Alanine Aminotransferase 28 Units/L (7-52); Albumin 3.4 g/dL (3.5-5.7); Alkaline Phosphatase 104 Units/L (34-104); Aspartate Amino Transferase 36 Units/L (13-39); BUN/Creatinine Ratio 16 (6-26); Bilirubin,Total 0.4 mg/dL (0.3-1.0); Blood Urea Nitrogen 12 mg/dL (8-23); Calcium 8.9 mg/dL (8.6-10.3); Carbon Dioxide 24 mEq/L (23-29); Chloride 105 mEq/L (98-107); Globulin 3.4 g/dL (2.4-3.5); Glucose 94 mg/dL (70-105); Osmolality,Calculated 296 (280-300); Potassium 3.3 mEq/L (3.5-5.1); Sodium 143 mEq/L (136-145); Total Protein 6.8 g/dL (6.4-8.9); eGFR For African Americans > 60 (> 60); eGFR For Non-African Americans > 60 (> 60)
[2020-12-01] MEDS: 0.9 % Sodium Chloride 1,000 ML IVC SCH (06:15)
[2020-12-01] MEDS: Insulin LISPRO 300 UNITS/3 ML VIAL SUBQ SCH ×4 (08:35→22:45)
[2020-12-01] MEDS ORDERED: Haloperidol Lactate 5 MG/ML VIAL IVP ONE ×2 (08:44→14:00)
[2020-12-01] MEDS: cefTRIAXone 1,000 MG in 0.9 % Sodium Chloride Mini Bag 100 ML IVPB SCH (13:14)
[2020-12-01] MEDS: Gabapentin 300 MG CAPSULE PO SCH ×3 (13:26→23:17)
[2020-12-01] MEDS: Haloperidol Lactate 5 MG/ML VIAL IVP PRN (17:23)
[2020-12-01] MEDS ORDERED: Ziprasidone 10 MG, Closed System Device IM Kit 1 EACH in Water for inj. (sterile) 0.5 ML IM ONE (20:44)
[2020-12-01] MEDS ORDERED: Ziprasidone 20 MG/VIAL VIAL IM ONE (23:08)
[2020-12-01] MEDS ORDERED: Water for inj. (sterile) 10 ML ONE (23:08)
[2020-12-02] MEDS: Haloperidol Lactate 5 MG/ML VIAL IVP PRN (00:29)
[2020-12-02] MEDS ORDERED: Haloperidol Lactate 5 MG/ML VIAL IVP ONE (03:33)
[2020-12-02] MEDS ORDERED: *HR* LORazepam 2 MG/ML VIAL IVP ONE (03:34)
[2020-12-02 04:54] LABS: Hemoglobin 8.9 g/dL (11.5-15.4); Mean Corpuscular HGB Conc 30.7 g/dL (31.6-35.5); Mean Corpuscular Hemoglobin 26.4 pg (28.0-33.3); Mean Corpuscular Volume 86.1 fL (83.0-100.0); Platelet Count 461 K/mcL (140-400); Red Blood Count 3.37 M/mcL (3.82-4.97); Red Cell Distribution Width 17.2 % (11.5-14.5); White Blood Count 9.7 K/mcL (4.3-11.1)
[2020-12-02 05:20] LABS: Alanine Aminotransferase 25 Units/L (7-52); Albumin 3.3 g/dL (3.5-5.7); Albumin/Globulin Ratio 1.3 (1.1-2.2); Alkaline Phosphatase 94 Units/L (34-104); Aspartate Amino Transferase 40 Units/L (13-39); BUN/Creatinine Ratio 17 (6-26); Bilirubin,Total 0.4 mg/dL (0.3-1.0); Blood Urea Nitrogen 13 mg/dL (8-23); Calcium 8.6 mg/dL (8.6-10.3); Carbon Dioxide 23 mEq/L (23-29); Chloride 113 mEq/L (98-107); Globulin 2.6 g/dL (2.4-3.5); Glucose 94 mg/dL (70-105); Osmolality,Calculated 308 (280-300); Potassium 3.2 mEq/L (3.5-5.1); Sodium 149 mEq/L (136-145); Total Protein 5.9 g/dL (6.4-8.9); eGFR For African Americans > 60 (> 60); eGFR For Non-African Americans > 60 (> 60)
[2020-12-02] MEDS: Insulin LISPRO 300 UNITS/3 ML VIAL SUBQ SCH ×4 (11:00→20:44)
[2020-12-02] MEDS: Gabapentin 300 MG CAPSULE PO SCH ×2 (12:21→20:49)
[2020-12-02] MEDS ORDERED: SUMAtriptan succinate 50 MG TABLET PO PRN (15:58)
[2020-12-02] MEDS ORDERED: hydrOXYzine pamoate 25 MG CAPSULE PO PRN (15:58)
[2020-12-02] MEDS ORDERED: Fluticasone Propionate Nasal 50 MCG/SPRAY BOTTLE NS PRN (15:58)
[2020-12-02] MEDS: Budesonide/Formoterol 160/4.5 1 PUFF INH IH SCH (20:45)
[2020-12-02] MEDS: QUEtiapine Fumarate 25 MG TABLET PO SCH (20:49)
[2020-12-02] MEDS ORDERED: Gabapentin 300 MG CAPSULE PO SCH (21:00)
[2020-12-03 05:29] LABS: Hemoglobin 10.3 g/dL (11.5-15.4); Mean Corpuscular HGB Conc 31.2 g/dL (31.6-35.5); Mean Corpuscular Hemoglobin 27.3 pg (28.0-33.3); Mean Corpuscular Volume 87.5 fL (83.0-100.0); Mean Platelet Volume 9.5 fL (9.4-12.4); Platelet Count 502 K/mcL (140-400); Red Blood Count 3.77 M/mcL (3.82-4.97); Red Cell Distribution Width 17.6 % (11.5-14.5); White Blood Count 9.5 K/mcL (4.3-11.1)
[2020-12-03 05:52] LABS: Alanine Aminotransferase 24 Units/L (7-52); Albumin 3.4 g/dL (3.5-5.7); Alkaline Phosphatase 100 Units/L (34-104); Aspartate Amino Transferase 38 Units/L (13-39); BUN/Creatinine Ratio 19 (6-26); Bilirubin,Total 0.4 mg/dL (0.3-1.0); Blood Urea Nitrogen 13 mg/dL (8-23); Calcium 8.9 mg/dL (8.6-10.3); Carbon Dioxide 26 mEq/L (23-29); Chloride 112 mEq/L (98-107); Globulin 3.3 g/dL (2.4-3.5); Glucose 89 mg/dL (70-105); Osmolality,Calculated 306 (280-300); Potassium 3.2 mEq/L (3.5-5.1); Sodium 148 mEq/L (136-145); Total Protein 6.7 g/dL (6.4-8.9); eGFR For African Americans > 60 (> 60); eGFR For Non-African Americans > 60 (> 60)
[2020-12-03] MEDS: Budesonide/Formoterol 160/4.5 1 PUFF INH IH SCH ×2 (08:27→20:14)
[2020-12-03] MEDS: Gabapentin 300 MG CAPSULE PO SCH ×3 (09:40→21:54)
[2020-12-03] MEDS: Folic Acid 1 MG TABLET PO SCH (09:40)
[2020-12-03] MEDS: Aspirin Enteric Coated 81 MG Tablet PO SCH (09:40)
[2020-12-03] MEDS: Insulin LISPRO 300 UNITS/3 ML VIAL SUBQ SCH ×4 (09:41→22:02)
[2020-12-03] MEDS ORDERED: *HR* HYDROcodone/Acet 5/325 mg TABLET PO PRN (10:36)
[2020-12-03] MEDS: *HR* Enoxaparin 40 MG/0.4 ML SYRINGE SQ SCH (15:18)
[2020-12-03] MEDS: QUEtiapine Fumarate 25 MG TABLET PO SCH (21:54)
[2020-12-04] MEDS: *HR* Enoxaparin 40 MG/0.4 ML SYRINGE SQ SCH (05:37)
[2020-12-04] MEDS: Insulin LISPRO 300 UNITS/3 ML VIAL SUBQ SCH ×2 (07:36→12:42)
[2020-12-04 07:50] LABS: Hematocrit 32.7 % (35.3-44.9); Hemoglobin 10.2 g/dL (11.5-15.4); Mean Corpuscular HGB Conc 31.2 g/dL (31.6-35.5); Mean Corpuscular Hemoglobin 27.2 pg (28.0-33.3); Mean Corpuscular Volume 87.2 fL (83.0-100.0); Mean Platelet Volume 10.2 fL (9.4-12.4); Platelet Count 372 K/mcL (140-400); Red Blood Count 3.75 M/mcL (3.82-4.97); Red Cell Distribution Width 17.4 % (11.5-14.5); White Blood Count 8.3 K/mcL (4.3-11.1)
[2020-12-04] MEDS: Budesonide/Formoterol 160/4.5 1 PUFF INH IH SCH (08:08)
[2020-12-04 08:30] LABS: Alanine Aminotransferase 19 Units/L (7-52); Albumin 3.2 g/dL (3.5-5.7); Albumin/Globulin Ratio 1.1 (1.1-2.2); Alkaline Phosphatase 93 Units/L (34-104); Aspartate Amino Transferase 43 Units/L (13-39); BUN/Creatinine Ratio 21 (6-26); Bilirubin,Total 0.3 mg/dL (0.3-1.0); Blood Urea Nitrogen 13 mg/dL (8-23); Calcium 8.2 mg/dL (8.6-10.3); Carbon Dioxide 23 mEq/L (23-29); Chloride 108 mEq/L (98-107); Globulin 2.8 g/dL (2.4-3.5); Glucose 87 mg/dL (70-105); Osmolality,Calculated 291 (280-300); Potassium 3.6 mEq/L (3.5-5.1); Sodium 141 mEq/L (136-145); eGFR For African Americans > 60 (> 60); eGFR For Non-African Americans > 60 (> 60)
[2020-12-04] MEDS: Gabapentin 300 MG CAPSULE PO SCH (09:44)
[2020-12-04] MEDS: Folic Acid 1 MG TABLET PO SCH (09:44)
[2020-12-04] MEDS: Aspirin Enteric Coated 81 MG Tablet PO SCH (09:45)
[2020-12-04 11:45] VITALS: BP 168/88; PULSE 80; TEMP 97.7; O2SAT 100
== END 2020-12-04 14:15 | disposition home or self-care (01) | DRG 885 ==
LOC: CDU 21:06 → EMEROOARM 21:06 → SUATTDRO 11-30 13:25 → CDU 11-30 14:09
PROVIDERS: ADMIT Internal Medicine; ATTEND Hospitalist

== ENCOUNTER 2020-12-10 08:49 | Observation (INO) ==
[2020-12-10 11:44] LABS: Bilirubin,Urine Negative (Negative); Blood,Urine Negative (Negative); Clarity,Urine Clear (Clear); Color,Urine Yellow (Yellow); Glucose,Urine (UA) Normal (Normal); Hyaline Casts,Urine Few per lpf (None Seen); Ketones,Urine Negative (Negative); Leukocyte Esterase,Urine Trace (Negative); Mucus,Urine Few per lpf (None-Few); Nitrite,Urine Negative (Negative); Protein,Urine 30 mg/dL (Neg-Trace); RBC,Urine 0-3 per hpf (0-3); Specific Gravity,Urine 1.025 (1.010-1.025); Squamous Epithelial Cell,Urine Few per hpf (None-Few); WBC,Urine 0-3 per hpf (0-3)
[2020-12-10 12:12] LABS: Basophils # 0.1 K/mcL (0.0-0.2); Basophils % 1.3 %; Eosinophils # 0.2 K/mcL (0.0-0.6); Eosinophils % 2.1 %; Hematocrit 44.8 % (35.3-44.9); Immature Granulocytes % 0.3 % (0-4); Lymphocytes # 3.9 K/mcL (0.6-4.6); Lymphocytes % 41.1 %; Mean Corpuscular HGB Conc 30.8 g/dL (31.6-35.5); Mean Corpuscular Hemoglobin 26.2 pg (28.0-33.3); Mean Platelet Volume 10.7 fL (9.4-12.4); Monocytes # 0.8 K/mcL (0.0-1.3); Monocytes % 8.7 %; Neutrophils # 4.4 K/mcL (1.6-8.9); Platelet Count 601 K/mcL (140-400); Red Blood Count 5.27 M/mcL (3.82-4.97); Red Cell Distribution Width 17.2 % (11.5-14.5); Segmented Neutrophils % 46.5 %; White Blood Count 9.4 K/mcL (4.3-11.1)
[2020-12-10 12:14] LABS: Hemoglobin 13.8 g/dL (11.5-15.4)
[2020-12-10 13:03] LABS: Amphetamine Screen,Urine Negative ng/mL (Cutoff=1000); Barbiturate Screen,Urine Negative ng/mL (Cutoff=200); Benzodiazepines Screen,Urine Negative ng/mL (Cutoff=200); Cannabinoid Screen,Urine Negative ng/mL (Cutoff = 50); Cocaine Screen,Urine Negative ng/mL (Cutoff= 300); Opiate Screen,Urine Positive ng/mL (Cutoff=300); Phencyclidine Screen,Urine Negative ng/mL (Cutoff=25)
[2020-12-10 13:13] LABS: Alanine Aminotransferase 28 Units/L (7-52); Albumin 4.2 g/dL (3.5-5.7); Albumin/Globulin Ratio 1.1 (1.1-2.2); Alkaline Phosphatase 171 Units/L (34-104); Aspartate Amino Transferase 59 Units/L (13-39); BUN/Creatinine Ratio 12 (6-26); Bilirubin,Indirect 0.5 mg/dL (0.0-1.0); Bilirubin,Total 0.5 mg/dL (0.3-1.0); Blood Urea Nitrogen 18 mg/dL (8-23); Calcium 9.8 mg/dL (8.6-10.3); Carbon Dioxide 27 mEq/L (23-29); Chloride 102 mEq/L (98-107); Ethanol < 10 mg/dL (Less than 10); Globulin 3.7 g/dL (2.4-3.5); Glucose 102 mg/dL (70-105); Osmolality,Calculated 294 (280-300); Potassium 4.4 mEq/L (3.5-5.1); Sodium 141 mEq/L (136-145); Total Protein 7.9 g/dL (6.4-8.9); Troponin I < 0.03 ng/mL (< 0.04); eGFR For African Americans 43 (> 60); eGFR For Non-African Americans 35 (> 60)
[2020-12-10] MEDS ORDERED: MOM Conc 10 ML UD.LIQ PO PRN (17:22)
[2020-12-10] MEDS ORDERED: Ondansetron ODT 4 MG TAB.RAPDIS SL PRN (17:22)
[2020-12-10] MEDS ORDERED: Naloxone 0.4 MG/ML INJ IVP PRN (17:22)
[2020-12-10] MEDS ORDERED: *HR* Dextrose 50 % in Water (Vial) 50 ML VIAL IVP PRN (17:42)
[2020-12-10] MEDS ORDERED: D5% in Water 1,000 ML IVC PRN (17:42)
[2020-12-10] MEDS ORDERED: Dextrose Gel 15 GM/37.5 ML TUBE PO PRN ×2 (17:42)
[2020-12-10] MEDS: Insulin LISPRO 300 UNITS/3 ML VIAL SUBQ SCH (18:40)
[2020-12-10] MEDS: 0.9 % Sodium Chloride 1,000 ML IVC SCH (18:49)
[2020-12-10] MEDS ORDERED: Insulin LISPRO 300 UNITS/3 ML VIAL SUBQ SCH (21:00)
[2020-12-11 00:52] LABS: Hematocrit 39.2 % (35.3-44.9); Mean Corpuscular HGB Conc 30.4 g/dL (31.6-35.5); Mean Corpuscular Hemoglobin 26.1 pg (28.0-33.3); Platelet Count 555 K/mcL (140-400); Red Blood Count 4.56 M/mcL (3.82-4.97); Red Cell Distribution Width 17.1 % (11.5-14.5); White Blood Count 9.2 K/mcL (4.3-11.1)
[2020-12-11 00:58] LABS: Hemoglobin 11.9 g/dL (11.5-15.4)
[2020-12-11 03:05] LABS: Alanine Aminotransferase 26 Units/L (7-52); Albumin 3.5 g/dL (3.5-5.7); Albumin/Globulin Ratio 1.1 (1.1-2.2); Alkaline Phosphatase 131 Units/L (34-104); Aspartate Amino Transferase 54 Units/L (13-39); BUN/Creatinine Ratio 19 (6-26); Bilirubin,Total 0.5 mg/dL (0.3-1.0); Blood Urea Nitrogen 19 mg/dL (8-23); Calcium 8.7 mg/dL (8.6-10.3); Carbon Dioxide 20 mEq/L (23-29); Chloride 104 mEq/L (98-107); Globulin 3.1 g/dL (2.4-3.5); Glucose 125 mg/dL (70-105); Osmolality,Calculated 290 (280-300); Potassium 3.9 mEq/L (3.5-5.1); Sodium 138 mEq/L (136-145); Thyroid Stimulating Hormone 5.404 mcIU/mL (0.340-5.600); Total Protein 6.6 g/dL (6.4-8.9); eGFR For African Americans > 60 (> 60); eGFR For Non-African Americans 55 (> 60)
[2020-12-11] MEDS ORDERED: *HR* Enoxaparin 40 MG/0.4 ML SYRINGE SQ SCH (06:00)
[2020-12-11] MEDS: Insulin LISPRO 300 UNITS/3 ML VIAL SUBQ SCH ×3 (07:11→16:30)
[2020-12-11] MEDS: 0.9 % Sodium Chloride 1,000 ML IVC SCH (08:11)
[2020-12-11] MEDS ORDERED: Fluticasone Propionate Nasal 50 MCG/SPRAY BOTTLE NS PRN (13:37)
[2020-12-11] MEDS ORDERED: Baclofen 10 MG TABLET PO PRN (13:37)
[2020-12-11] MEDS ORDERED: risperiDONE 0.25 MG TABLET PO ONE (14:01)
[2020-12-11] MEDS ORDERED: Furosemide 40 MG TABLET PO SCH (17:00)
[2020-12-11 19:33] VITALS: BP 136/87; PULSE 79; TEMP 97.7; O2SAT 98
[2020-12-11] MEDS ORDERED: QUEtiapine Fumarate 25 MG TABLET PO SCH (21:00)
[2020-12-12] MEDS ORDERED: Folic Acid 1 MG TABLET PO SCH (09:00)
== END 2020-12-11 21:10 | disposition short-term general hospital (02) ==
LOC: 3BNU 08:49 → EMEROOARM 08:49 → SUATTDRO 15:34 → 3BNU 17:06
PROVIDERS: ADMIT Internal Medicine; ATTEND Registered Nurse